=== PATIENT | female | born 1970 | race Two or more races ===

== ENCOUNTER 2023-01-19 13:19 | Emergency (ER) | payer MEDICAID, OTHER ==
[~2023-01-19] VITALS: Ht 152.4 cm; Wt 74.1 kg
[2023-01-19 18:55] VITALS: BP 147/92; PULSE 73; RESP 18; TEMP 98; O2SAT 97
== END 2023-01-19 18:56 | disposition left against medical advice (07) ==
LOC: ER 13:19
DX: M54.2 Cervicalgia (principal); M54.9 Dorsalgia, unspecified; Z53.21 Procedure and treatment not carried out due to patient leaving prior to being seen by health care provider; V43.52XA Car driver injured in collision with other type car in traffic accident, initial encounter; Y93.89 Activity, other specified; Y92.410 Unspecified street and highway as the place of occurrence of the external cause; Y99.8 Other external cause status